=== PATIENT | female | born 1995 | race Caucasian/White ===

== ENCOUNTER 2017-07-03 21:43 | Emergency (ER) | payer BC, OTHER ==
[2017-07-03 21:59] VITALS: BP 122/80; PULSE 96; RESP 16; TEMP 97.7
[2017-07-03] MEDS ORDERED: RABIES VACCINE (PCEC) 2.5 UNIT KIT IM ONE (22:12)
[2017-07-03] MEDS ORDERED: RABIES IMMUNE GLOB 150 UNIT/ML 10 ML VIAL IM ONE (22:12)
[2017-07-03] MEDS ORDERED: IBUPROFEN 600 MG TAB PO STA (22:13)
[2017-07-03] MEDS ORDERED: DIPH,PERTUS(ACELL)TETVAC-LF 0.5 ML VIAL IM ONE (22:13)
[2017-07-03] MEDS ORDERED: DOXYCYCLINE 50 MG CAP PO STA (22:16)
--- NOTE | 2017-07-03 22:25 | ED ---
Animal Bite HPI - General Chief Complaint: Animal Bite Stated Complaint: dog bite Time Seen by Provider: 07/03/17 22:00 Source: patient Mode of arrival: ambulatory Limitations: no limitations - History of Present Illness Initial Comments: 22-year-old female patient presented to the emergency department today for evaluation of a dog bite to the left upper arm. Patient states that she thought her pet had gotten out however when she went to the back there were 2 unknown dogs present , she states that the one dog did attack and bite her arm, she also sustained abrasion from the dogs claws to her right foot. Patient states that she does not know who these animals belonged to, so is unaware of their vaccination status. She denies any fall with the altercation. She states she is not sure when she had a tetanus last. She denies any difficulties with range of motion to the left shoulder, elbow, or wrist. She denies any other injuries. She states she is having some local pain to the area. She denies any head, neck, or back pain. She denies any chest pain, shortness of breath, abdominal pain, nausea, vomiting, dizziness, weakness, or difficulty with urination or bowel movements. - Related Data Previous Rx's Medication Instructions Recorded Doxycycline Hyclate 100 mg PO BID #20 tab 07/03/17 Allergies Allergy/AdvReac Type Severity Reaction Status Date / Time amoxicillin [Amoxicillin] Allergy Unknown Verified 07/03/17 21:59 Childhood Review of Systems ROS Statement: Those systems with pertinent positive or pertinent negative responses have been documented in the HPI. ROS Other: All systems not noted in ROS Statement are negative. Past Medical History Past Medical History: No Reported History History of Any Multi-Drug Resistant Organisms: None Reported Past Surgical History: No Surgical Hx Reported Past Psychological History: No Psychological Hx Reported Smoking Status: Never smoker Past Alcohol Use History: None Reported Past Drug Use History: None Reported General Exam Limitations: no limitations General appearance: alert, in no apparent distress Head exam: Present: atraumatic, normocephalic, normal inspection Eye exam: Present: normal appearance, PERRL, EOMI. Absent: scleral icterus, conjunctival injection, periorbital swelling ENT exam: Present: normal exam, mucous membranes moist Neck exam: Present: normal inspection, full ROM. Absent: tenderness, meningismus, lymphadenopathy Respiratory exam: Present: normal lung sounds bilaterally. Absent: respiratory distress, wheezes, rales, rhonchi, stridor Cardiovascular Exam: Present: regular rate, normal rhythm, normal heart sounds. Absent: systolic murmur, diastolic murmur, rubs, gallop, clicks GI/Abdominal exam: Present: soft, normal bowel sounds. Absent: distended, tenderness, guarding, rebound, rigid Extremities exam: Present: full ROM, tenderness (Tenderness superficially over the posterior upper arm. No tenderness noted over the acromioclavicular joint, shoulder, humerus, elbow, forearm, or wrist.), normal capillary refill, other ( Patient does have 1 large puncture wound to the left upper arm, and 4 small puncture wounds. Surrounding erythema present.). Absent: normal inspection, pedal edema, joint swelling, calf tenderness Back exam: Present: normal inspection, full ROM. Absent: tenderness, vertebral tenderness Neurological exam: Present: alert, oriented X3, CN II-XII intact Psychiatric exam: Present: normal affect, normal mood Skin exam: Present: warm, dry, intact, normal color. Absent: rash Course Vital Signs 07/03/17 21:55 Temperature 97.7 F Pulse Rate 96 Respiratory 16 Rate Blood Pressure 122/80 O2 Sat by Pulse 98 Oximetry Medical Decision Making - Medical Decision Making 22-year-old female patient presented to emergency department today for evaluation of dog bite to her left upper arm. Patient was attacked by an unknown animal with unknown vaccination status. Rabies immunoglobulin as well as rabies vaccine was administered here in the emergency department. Patient was updated on her tetanus. Patient was started on doxycycline for prophylaxis of infection. Patient will be given a prescription to obtain additional rabies vaccines on 07/06/2017, 07/10/2017, and 07/17/2017. Wound was irrigated extensively. Punctures were not closed. Patient did not have any bony tenderness or limits to range of motion so x-rays were unnecessary. Patient instructed to follow up with his primary care physician for recheck in 1-2 days. Instructed to return here immediately for any new, worsening, or concerning symptoms. Patient verbalizes understanding and agrees to this plan. Disposition Clinical Impression: Animal bite, Need for prophylactic vaccination against rabies Disposition: HOME SELF-CARE Condition: Good Instructions: Animal Bite (ED), Rabies Vaccine (ED) Additional Instructions: Keep wounds clean and dry. Apply topical antibiotic ointment like Neosporin to the area. Follow-up with primary care physician for recheck in 1-2 days. Return immediately for any new, worsening, or concerning symptoms. Prescriptions: Doxycycline Hyclate 100 mg PO BID #20 tab Referrals: Bello Yoo III, MD [Primary Care Provider] - 1-2 days Time of Disposition: 23:05
== END 2017-07-03 23:33 | disposition home or self-care (01) ==
LOC: EC 21:43
DX: S41.152A Open bite of left upper arm, initial encounter (principal); S90.811A Abrasion, right foot, initial encounter; Z88.0 Allergy status to penicillin; W54.0XXA Bitten by dog, initial encounter
CPT/HCPCS: 90375; 90471; 90675; 90715; 96372; 99283